=== PATIENT | female | born 1985 | race Caucasian/White ===

== ENCOUNTER 2018-04-16 20:00 | Emergency (ER) | payer SELFPAY ==
[~2018-04-16] VITALS: Ht 154.9 cm; Wt 61.1 kg
[2018-04-16 20:24] VITALS: Ht 154.9 cm; Wt 61.1 kg
[2018-04-17] MEDS ORDERED: ONDANSETRON 4 MG INJ IV STA (01:03)
[2018-04-17] MEDS ORDERED: morphine 4 MG/ML VIAL IV STA (01:03)
[2018-04-17] MEDS ORDERED: HYDROmorphONE 0.5 MG/0.5 ML SYG IV STA (03:11)
[2018-04-17] MEDS ORDERED: DOCU-144 PO (03:14)
[2018-04-17] MEDS ORDERED: SIME80TA53 PO (03:15)
[2018-04-17 04:05] VITALS: BP 112/71; PULSE 66; RESP 19
--- NOTE | 2018-04-17 05:49 | ERD ---
ER Documentation Chief Complaint Chief Complaint sent from erika, MAURILIO abd painx2 weeks. hx cancerous cysts/thrombocytopenia HPI Patient is a 33-year-old female with a history of "cancerous cyst", thrombocytopenia, who presents the ER for concerns of abdominal pain times 2 weeks. Patient is referred to the ER by her doctor at the [facility]. Patient states she has had intermittent pain for the last 2 weeks. Pain is localized to the left lower quadrant. Patient states that she feels as if she is severely bloated. Patient states she has not had any bowel movements for the last 2 days. Patient states she has been constipated in the past. Patient denies any nausea or vomiting. Patient denies diarrhea or rectal bleeding. Patient denies dysuria, frequency, urgency or hematuria. Patient denies any fevers or chills. Patient denies chest pain, shortness of breath, diaphoresis or LOC. ROS All systems reviewed and are negative except as per history of present illness. Medications Home Meds Active Scripts Simethicone (GAS RELIEF) 80 Mg Tab.chew, 80 MG PO as directed, #20 TAB.CHEW Prov:RUSTAM ROBERTSON PA-C 04/17/18 Docusate Sodium* (Colace*) 100 Mg Capsule, 100 MG PO TID, #30 CAP Prov:RUSTAM ROEBRTSON PA-C 04/17/18 Allergies Allergies: Coded Allergies: No Known Allergy (Verified , 07/04/12) PMhx/Soc History of Surgery: Yes (liposuction, abdominal hernia repair) Anesthesia Reaction: No Hx Neurological Disorder: No Hx Respiratory Disorders: No Hx Cardiac Disorders: No Hx Psychiatric Problems: No Hx Miscellaneous Medical Probl: Yes (ovarian cyst) Hx Alcohol Use: No Hx Substance Use: No Hx Tobacco Use: No FmHx Family History: No diabetes Physical Exam Vitals Vital Signs Date Temp Pulse Resp B/P (MAP) Pulse Ox O2 O2 Flow FiO2 Time Delivery Rate 04/17/18 98.2 66 19 112/71 98 Room Air 04:05 (85) 04/16/18 98.0 92 18 148/86 100 20:24 (106) Physical Exam GENERAL: Well-developed, well-nourished female. Appears in no acute distress. HEAD: Normocephalic, atraumatic. EYES: Pupils are equally reactive bilaterally. EOMs grossly intact. No conjunctival erythema. ENT: Moist mucous membranes. No uvula deviation. No kissing tonsils. NECK: Supple. No meningismus. Normal range of motion of the neck. LUNG: Clear to auscultation bilaterally. No rhonchi, wheezing, rales or coarse breath sounds. HEART: Regular rate and rhythm. No murmurs, rubs or gallops. ABDOMEN: Minimally distended. Tender to palpation bilateral lower quadrants.. No rebound tenderness, no guarding. (-) McBurney's point tenderness. No CVA tenderness. BACK: No midline tenderness. EXTREMITIES: Equal pulses bilaterally. No peripheral clubbing, cyanosis or edema. No unilateral leg swelling. NEUROLOGIC: Alert and oriented. Moving all four extremities without any difficulty. Normal speech. Steady gait. SKIN: Normal color. Warm and dry. No rashes or lesions. Result Diagram: 04/17/18 0139 04/17/18138 Results 24 hrs Laboratory Tests Test 04/17/18 01:35 04/17/18 01:39 POC Beta HCG, Qualitative NEGATIVE White Blood Count 6.6 10^3/ul Red Blood Count 4.36 10^6/ul Hemoglobin 12.8 g/dl Hematocrit 39.9 % Mean Corpuscular Volume 91.5 fl Mean Corpuscular Hemoglobin 29.4 pg Mean Corpuscular Hemoglobin Concent 32.1 g/dl Red Cell Distribution Width 12.3 % Platelet Count 266 10^3/UL Mean Platelet Volume 10.4 fl Immature Granulocytes % 0.600 % Neutrophils % 46.6 % Lymphocytes % 38.8 % Monocytes % 11.8 % Eosinophils % 1.7 % Basophils % 0.5 % Nucleated Red Blood Cells % 0.0 /100WBC Immature Granulocytes # 0.040 10^3/ul Neutrophils # 3.1 10^3/ul Lymphocytes # 2.5 10^3/ul Monocytes # 0.8 10^3/ul Eosinophils # 0.1 10^3/ul Basophils # 0.0 10^3/ul Nucleated Red Blood Cells # 0.0 10^3/ul Urine Color YELLOW Urine Clarity CLEAR Urine pH 6.0 Urine Specific [place] 1.024 Urine Ketones NEGATIVE mg/dL Urine Nitrite NEGATIVE mg/dL Urine Bilirubin NEGATIVE mg/dL Urine Urobilinogen NEGATIVE mg/dL Urine Leukocyte Esterase NEGATIVE Erika/ul Urine Hemoglobin NEGATIVE mg/dL Urine Glucose NEGATIVE mg/dL Urine Total Protein NEGATIVE mg/dl Sodium Level 141 mmol/L Potassium Level 3.7 mmol/L Chloride Level 109 mmol/L Carbon Dioxide Level 25 mmol/L Anion Gap 7 Blood Urea Nitrogen 19 mg/dl Creatinine 0.55 mg/dl Est Glomerular Filtrat Rate mL/min > 60 mL/min Glucose Level 100 mg/dl Calcium Level 9.4 mg/dl Total Bilirubin 0.0 mg/dl Direct Bilirubin 0.00 mg/dl Indirect Bilirubin 0.0 mg/dl Aspartate Amino Transf (AST/SGOT) 23 IU/L Alanine Aminotransferase (ALT/SGPT) 21 IU/L Alkaline Phosphatase 78 IU/L Total Protein 7.8 g/dl Albumin 4.2 g/dl Globulin 3.60 g/dl Albumin/Globulin Ratio 1.16 Lipase 105 U/L Current Medications Medications Dose Sig/Alexander Start Time Status Last (Trade) Ordered Route PRN Stop Time Admin Dose Reason Admin Morphine 4 mg ONCE STAT 04/17/18 DC 04/17/18 Sulfate IV 01:03 01:45 (morphine) 04/17/18 01:04 Ondansetron 4 mg ONCE STAT 04/17/18 DC 04/17/18 HCl (Zofran IV 01:03 01:42 Inj) 04/17/18 01:04 0.5 mg ONCE STAT 04/17/18 DC Hydromorphone IV 03:11 HCl 04/17/18 03:14 (Dilaudid) Procedures/MDM ED COURSE: The patient was stable throughout ED course. I kept the patient and/or family informed of laboratory and diagnostic imaging results throughout the ED course. DIAGNOSTIC IMAGING: Read by radiologist. DIAGNOSTIC IMAGING REPORT Patient: TANK FREEMAN : 1985 Age: 33 Sex: F MR #: [id number] DOS: 04/17/18 0103 Ordering MD: RUSTAM ROBERTSON PA-C Location: [facility] Room/Bed: PROCEDURE: CT of the abdomen and pelvis without contrast CLINICAL INDICATION: Abdominal pain. TECHNIQUE: Spiral CT images through the abdomen and pelvis without the use of oral and without the use of intravenous contrast. The administered radiation dose is CTDI 7.93 mGy and DLP 447.62 mGy-cm. One or more of the following dose reduction techniques were used: automated exposure control, adjustment of the mA and/or kV according to patient size, or use of iterative reconstruction martha hnique. DICOM images are available. COMPARISON: US ABDOMEN 07/05/2012 FINDINGS: The study is limited by lack of intravenous contrast. Lower thorax: Lung bases are clear. Liver: Uniform unenhanced liver, within normal limits.. Biliary: The gallbladder is unremarkable.. No biliary ductal dilatation is seen. Pancreas: Unremarkable. Spleen: The spleen is unremarkable in appearance Adrenal glands: Unremarkable in appearance. No focal nodule.. Genitourinary: No hydronephrosis or renal calculi are seen.. The bladder is unremarkable in appearance.. Gastrointestinal Tract: Assessment is more limited without contrast. There is some fluid and debris within the stomach. Mild wall thickening versus underdistension of borderline prominent jejunal loops measuring up to 2.6 cm within the left hemiabdomen, without adjacent perienteric fat stranding, or defined focal transition. Stool seen throughout the colon to the level rectum.. The appendix is unremarkable in appearance. Lymph nodes: No bulky adenopathy is seen. Vascular structures: The aorta and mesenteric vessels are unremarkable.. Scattered tiny round bilateral pelvic calcifications which appear to be beyond the course of the distal ureters, consistent with several small phleboliths Peritoneal cavity: No free air, free or loculated fluid seen.. Reproductive Organs: Grossly unremarkable and within physiologic normal limits. Soft tissues: Postsurgical changes are seen involving the mid and lower anterior abdominal wall. Musculoskeletal: No acute or aggressive appearing osseous abnormality. Mild leftward curvature centered and L1 that may in part be positional.. IMPRESSION: No definite evidence of urinary tract stone or secondary signs of urinary tract obstruction. Borderline prominent jejunal loops with mild wall thickening versus incomplete distension, and which could represent a nonspecific mild ileus or enteritis. No defined transition to suggest intestinal obstruction. No evidence of appendicitis, free air or abscess. RPTAT: [facility] Physician Virgil Date Time Electronically viewed and signed by Physician Virgil on 04/17/2018 02:48 RF/ CC: RUSTAM ROBERTSON PA-C [phone] PROCEDURES: None. MEDICATIONS GIVEN: Morphine, Zofran Patient tolerated medication well with no adverse reactions. Patient reported improvement in pain. MEDICAL DECISION MAKING: Patient is a 33-year-old female with a history of "cancerous cyst", thrombocytopenia, who presents the ER for concerns of abdominal pain times 2 weeks. Vital signs were reviewed. Patient is afebrile. IV line was established, blood work was obtained. CBC showed no evidence of systemic infection, severe anemia or thromboycytopenia. CMP showed no evidence of electrolyte abnormalities, severe acidosis, alkalosis, renal failure, or liver disease. Lipase showed no evidence of acute pancreatitis. UA showed no evidence of acute infection or hematuria. Urine test was negative. CT abdomen and pelvis showed No definite evidence of urinary tract stone or secondary signs of urinary tract obstruction. Borderline prominent jejunal loops with mild wall thickening versus incomplete distension, and which could represent a nonspecific mild ileus or enteritis. No defined transition to suggest intestinal obstruction. No evidence of appendicitis, free air or abscess. Case was discussed with supervising physician Dr. Martinez. He agreed that symptoms likely consistent with mild ileus and patient was stable for outpatient management. He advised me to discharge patient home with Colace. Patient reported improvement in symptoms prior to discharge. Patient was given a copy of all blood work and imaging studies completed today and advised to follow up with her OBGYN for further workup/ management of symptoms. Unable to rule out malignancy. At this time, patient's presentation is most consistent with mild ileus. Differential diagnosis included but was acute coronary syndrome, AAA, mesenteric ischemia, lower lobe pneumonia, DKA, bowel perforation, cholecystitis, choledocholithiasis, ascending cholangitis, hepatic abscess, pancreatitis, PUD, gastritis, GERD, splenic rupture, diverticulitis, UTI, pyelonephritis, nephrolithiasis, appendicitis, , ectopic , PID, ovarian torsion or tubo-ovarian abscess. Patient was nontoxic, non ill appearing prior to discharge. PRESCRIPTIONS: Simethicone, Colace DISCHARGE: At this time, patient is stable for discharge and outpatient management. I have instructed the patient to follow-up with his/her primary care physician in 1-2 days. I have instructed the patient to promptly return to the ER at any time for any new or worsening symptoms including increased pain, nausea, vomiting, diarrhea, fever, weakness or LOC. The patient and/or family expressed understanding of and agreement with this plan. All questions were answered. Home care instructions were provided. Patient's blood pressure was elevated (>120/80) but appears stable without evidence of hypertensive emergency, hypertensive urgency or end-organ failure. I had discussion with the patient about the risks of hypertension. I have advised the patient to follow up with his/her primary care physician for outpatient m onitoring and treatment for hypertension in 2-3 days. I have instructed the patient to return to the ER for any new or worsening symptoms including chest pain, shortness of breath, headache, blurred vision, confusion, nausea, vomiting or LOC. Disclaimer: Inadvertent spelling and grammatical errors are likely due to EHR/dictation software use and do not reflect on the overall quality of patient care. Also, please note that the electronic time recorded on this note does not necessarily reflect the actual time of the patient encounter. Departure Diagnosis: Primary Impression: Abdominal pain Abdominal location: unspecified location Qualified Codes: R10.9 - Unspecified abdominal pain Additional Impression: Bloating Condition: Fair Patient Instructions: Abdominal Pain Referrals: [facility] YOU HAVE RECEIVED A MEDICAL SCREENING EXAM AND THE RESULTS INDICATE THAT YOU DO NOT HAVE A CONDITION THAT REQUIRES URGENT TREATMENT IN THE EMERGENCY DEPARTMENT. FURTHER EVALUATION AND TREATMENT OF YOUR CONDITION CAN WAIT UNTIL YOU ARE SEEN IN YOUR DOCTORS OFFICE WITHIN THE NEXT 1-2 DAYS. IT IS YOUR RESPONSIBILITY TO MAKE AN APPOINTMENT FOR FOLOW-UP CARE. IF YOU HAVE A PRIMARY DOCTOR --you should call your primary doctor and schedule an appointment IF YOU DO NOT HAVE A PRIMARY DOCTOR YOU CAN CALL OUR PHYSICIAN REFERRAL HOTLINE AT IF YOU CAN NOT AFFORD TO SEE A PHYSICIAN YOU CAN CHOSE FROM THE FOLLOWING [facility] [address] [facility] [address] [facility] [facility] [address] [facility] [address] [facility] [address] [facility] [facility]. [address] [facility] [facility] YOU HAVE RECEIVED A MEDICAL SCREENING EXAM AND THE RESULTS INDICATE THAT YOU DO NOT HAVE A CONDITION THAT REQUIRES URGENT TREATMENT IN THE EMERGENCY DEPARTMENT. FURTHER EVALUATION AND TREATMENT OF YOUR CONDITION CAN WAIT UNTIL YOU ARE SEEN IN YOUR DOCTORS OFFICE WITHIN THE NEXT 1-2 DAYS. IT IS YOUR RESPONSIBILITY TO MAKE AN APPOINTMENT FOR FOLOW-UP CARE. IF YOU HAVE A PRIMARY DOCTOR --you should call your primary doctor and schedule and appointment IF YOU DO NOT HAVE A PRIMARY DOCTOR YOU CAN CALL OUR PHYSICIAN REFERRAL HOTLINE AT . IF YOU CAN NOT AFFORD TO SEE A PHYSICIAN YOU CAN CHOSE FROM THE FOLLOWING [facility] INSTITUTIONS: [facility] [address] [place] [address] [facility] [address] [place] [address] [facility] [address] [place] [address] Additional Instructions: Call your primary care doctor TOMORROW for an appointment during the next 1-2 days.See the doctor sooner or return here if your condition worsens before your appointment time. RUSTAM ORBERTSON PA-C Apr 17, 2018 05:49
== END 2018-04-17 04:07 | disposition home or self-care (01) ==
LOC: FTE 20:00
DX: R10.32 Left lower quadrant pain (principal); R14.0 Abdominal distension (gaseous)
CPT/HCPCS: 36415; 74176; 80053; 81003; 81025; 83690; 85025; 96374; 96375; 99285; J2270; J2405